=== PATIENT | female | born 2000 | race Caucasian/White ===

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

== ENCOUNTER 2022-01-09 09:02 | Outpatient (CLI) | payer OTHER ==
[~2022-01-09] VITALS: Ht 162.6 cm; Wt 70.0 kg
[~2022-01-09 09:02] MED LIST changes: -LR 1,000 ML IV ONE; +VEDOLIZUMAB 300 MG in NS 250 ML IV ONE
[2022-01-09 09:17] VITALS: BP 135/77
[2022-01-09 10:15] VITALS: BP 129/67
== END 2022-01-09 10:15 | disposition home or self-care (01) ==
LOC: M INFU 09:02
PROVIDERS: ATTEND Internal Medicine Gastroenterology
DX: K50.919 Crohn's disease, unspecified, with unspecified complications (principal); Z88.8 Allergy status to other drugs, medicaments and biological substances
CPT/HCPCS: 96365; J3380

== ENCOUNTER 2022-01-23 09:04 | Outpatient (CLI) | payer OTHER ==
[~2022-01-23] VITALS: Ht 162.6 cm; Wt 70.7 kg
[2022-01-23 09:14] VITALS: BP 131/61
[2022-01-23 10:15] VITALS: BP 128/88
== END 2022-01-23 10:15 | disposition home or self-care (01) ==
LOC: M INFU 09:04
PROVIDERS: ATTEND Internal Medicine Gastroenterology
DX: K50.90 Crohn's disease, unspecified, without complications (principal); Z88.8 Allergy status to other drugs, medicaments and biological substances
CPT/HCPCS: 96365; J3380

== ENCOUNTER 2022-05-22 08:35 | Outpatient (CLI) | payer OTHER ==
[~2022-05-22] VITALS: Ht 165.1 cm; Wt 68.2 kg
[~2022-05-22 08:35] MED LIST changes: +RISANKIZUMAB-RZAA 600 MG in D5W 250 ML IV ONE; -VEDOLIZUMAB 300 MG in NS 250 ML IV ONE
[2022-05-22 08:43] VITALS: BP 133/80
[2022-05-22 12:21] VITALS: BP 163/80
== END 2022-05-22 10:15 | disposition home or self-care (01) ==
LOC: M INFU 08:35
PROVIDERS: ATTEND Internal Medicine Gastroenterology
DX: K50.90 Crohn's disease, unspecified, without complications (principal); Z88.8 Allergy status to other drugs, medicaments and biological substances
CPT/HCPCS: 96365; C9399

== ENCOUNTER 2022-06-19 08:10 | Outpatient (CLI) | payer OTHER ==
[~2022-06-19] VITALS: Ht 165.1 cm; Wt 68.2 kg
[~2022-06-19 08:10] MED LIST changes: -RISANKIZUMAB-RZAA 600 MG in D5W 250 ML IV ONE
[2022-06-19] MEDS ORDERED: RISANKIZUMAB-RZAA 600 MG in D5W 250 ML IV ONE (08:30)
[2022-06-19 08:31] VITALS: BP 134/71
[2022-06-19 10:14] VITALS: BP 124/72
== END 2022-06-19 10:15 | disposition home or self-care (01) ==
LOC: M INFU 08:10
PROVIDERS: ATTEND Internal Medicine Gastroenterology
DX: K50.90 Crohn's disease, unspecified, without complications (principal); Z88.8 Allergy status to other drugs, medicaments and biological substances
CPT/HCPCS: 96365; C9399

== ENCOUNTER 2022-07-17 08:15 | Outpatient (CLI) | payer OTHER ==
[~2022-07-17] VITALS: Ht 165.1 cm; Wt 68.0 kg
[2022-07-17 08:27] VITALS: BP 128/70
[2022-07-17] MEDS ORDERED: RISANKIZUMAB-RZAA 600 MG in D5W 250 ML IV ONE (08:30)
[2022-07-17 10:00] VITALS: BP 128/69
== END 2022-07-17 10:00 | disposition home or self-care (01) ==
LOC: M INFU 08:15
PROVIDERS: ATTEND Internal Medicine Gastroenterology
DX: K50.90 Crohn's disease, unspecified, without complications (principal); Z88.8 Allergy status to other drugs, medicaments and biological substances
CPT/HCPCS: 96365; C9399

== ENCOUNTER → 2024-11-03 | Outpatient (REF) | payer OTHER ==
[2024-11-08 14:37] LABS: HPV APTIMA Not Detected (Not Detected)
== END ==
LOC: M SFHCWAGY 13:16
PROVIDERS: ATTEND Nurse Practitioner Family
DX: R87.610 Atypical squamous cells of undetermined significance on cytologic smear of cervix (ASC-US) (principal)
CPT/HCPCS: 87624; G0123